=== PATIENT | female | born 1995 | race African-American/Black ===

== ENCOUNTER 2017-01-31 00:34 | Emergency (ER) | payer OTHER ==
[~2017-01-31] VITALS: Ht 170.2 cm; Wt 89.4 kg
[~2017-01-31 00:34] MED LIST: FLAGYL500 MG PO; FLONASE16 G1 BOTH NARES; KEFLEX500 MG PO; NAPROSYN500 MG PO; ZYRTEC10 M2 PO
[2017-01-31 01:58] LABS: HEMATOCRIT 33.7 % (36.0-46.0); MCH 26.9 PG (29.0-34.0); MCHC 32.9 G/DL (30.0-36.0); MCV 81.6 FL (83-99); RBC DIS.WIDTH-CV 14.3 % (11.8-14.6); RBC DIS.WIDTH-SD 42.2 % (39-53); RED BLOOD COUNT 4.13 M/uL (3.80-5.20); WHITE BLOOD COUNT 13.5 K/uL (4.1-10.2)
[2017-01-31 02:00] LABS: MEAN PLAT.VOLUME 11.9 uM^3 (9.5-12.4); PLATELET COUNT 220 K/uL (156-360)
[2017-01-31 02:09] LABS: CHLORIDE 106 mEq/L (99-109); POTASSIUM 3.8 mEq/L (3.7-5.4); SODIUM 135 mEq/L (136-147)
[2017-01-31 02:11] LABS: GLUCOSE 87 mg/dL (70-99)
[2017-01-31 02:12] LABS: ANION GAP 8 MEQ/L (2-14)
[2017-01-31 02:13] LABS: TOTAL BILIRUBIN 0.2 mg/dL (0.0-1.0)
[2017-01-31 02:14] LABS: ALKALINE PHOSPHATASE 67 IU/L (3-129)
[2017-01-31 02:15] LABS: GFR ESTIMATE (CALCULATED) > 59 mL/min/
[2017-01-31 02:16] LABS: UREA NITROGEN (BUN) 8 mg/dL (9-23)
[2017-01-31 02:18] LABS: LIPASE 18 U/L (1.0-51.0)
[2017-01-31 02:42] LABS: QUANTITATIVE HCG 27879.2 MIU/ML
[2017-01-31 02:45] LABS: ADD MIUA? YES; BILIRUBIN NEGATIVE; BLOOD NEGATIVE; COLOR YELLOW ((YELLOW)); GLUCOSE (STRIP) NEGATIVE; KETONES NEGATIVE; LEUKOCYTES TRACE; NITRITE NEGATIVE; PROTEIN (STRIP) 30; SPECIFIC GRAVITY 1.019 (1.000-1.030); UROBILINOGEN 0.2 MG/DL (0.2-1.0)
[2017-01-31 03:05] LABS: BACTERIA 3+ /HPF; CASTS NONE SEEN /LPF; EPITHELIAL CELLS 1+ /HPF; MUCUS RARE /LPF; RED BLOOD CELLS NONE SEEN /HPF (0-5); UCUL ADDED? YES
[2017-01-31 03:06] LABS: CRYSTALS NONE SEEN
[2017-01-31] MEDS ORDERED: MACROBID100 MG PO (03:17)
[2017-01-31 03:24] VITALS: BP 124/78
== END 2017-01-31 03:24 | disposition home or self-care (01) ==
LOC: EME 00:34
PROVIDERS: Emergency Medicine
DX: O23.42 Unspecified infection of urinary tract in pregnancy, second trimester (principal); Z3A.21 21 weeks gestation of pregnancy
CPT/HCPCS: 76805; 80053; 81003; 83690; 84702; 85027; 87086; 99281; 99283

== ENCOUNTER 2017-06-17 22:42 | Inpatient (IN) | payer OTHER ==
[~2017-06-17] VITALS: Ht 167.6 cm; Wt 99.0 kg
[~2017-06-17 22:42] MED LIST changes: +MACROBID100 MG PO
[2017-06-17 23:08] VITALS: BP 136/89
[2017-06-17] MEDS ORDERED: PRENATAL VITAM1 EA11 PO (23:56)
[2017-06-18] VITALS (28 sets, daily range): BP systolic 105–138; BP diastolic 56–88
[2017-06-18 00:27] LABS: EOSINOPHIL (%) 0.6 % (0-5); EOSINOPHIL COUNT 0.1 K/uL (0-0.3); HEMATOCRIT 32.2 % (36.0-46.0); IMMATURE GRANULOCYTE (%) 1.8 % (0.0-0.7); IMMATURE GRANULOCYTE COUNT 0.1 K/uL; INSTRUMENT ABS NEUTROPHIL CT 4.3 K/uL; LYMPHOCYTE COUNT 2.3 K/uL (1.0-2.8); MCH 24.4 PG (29.0-34.0); MCHC 31.1 G/DL (30.0-36.0); MCV 78.5 FL (83-99); MEAN PLAT.VOLUME 12.5 uM^3 (9.5-12.4); MONOCYTE (%) 13.1 % (3-12); NEUTROPHIL (%) 55.1 % (45-76); NEUTROPHIL COUNT 4.3 K/uL (1.8-6.4); PLATELET COUNT 199 K/uL (156-360); RBC DIS.WIDTH-CV 14.9 % (11.8-14.6); RBC DIS.WIDTH-SD 42.5 % (39-53); WHITE BLOOD COUNT 7.8 K/uL (4.1-10.2)
[2017-06-19 07:00] LABS: EOSINOPHIL (%) 0.5 % (0-5); EOSINOPHIL COUNT 0.1 K/uL (0-0.3); IMMATURE GRANULOCYTE (%) 1.7 % (0.0-0.7); IMMATURE GRANULOCYTE COUNT 0.3 K/uL; LYMPHOCYTE COUNT 3.3 K/uL (1.0-2.8); MCH 24.5 PG (29.0-34.0); MCHC 30.8 G/DL (30.0-36.0); MCV 79.6 FL (83-99); MEAN PLAT.VOLUME 12.8 uM^3 (9.5-12.4); MONOCYTE COUNT 1.9 K/uL (0-0.8); NEUTROPHIL (%) 64.5 % (45-76); PLATELET COUNT 156 K/uL (156-360); RBC DIS.WIDTH-CV 15.1 % (11.8-14.6); RBC DIS.WIDTH-SD 43.6 % (39-53); WHITE BLOOD COUNT 15.4 K/uL (4.1-10.2)
[2017-06-19 07:01] LABS: RED BLOOD COUNT 3.14 M/uL (3.80-5.20)
[2017-06-19 07:29] VITALS: BP 143/73
[2017-06-19 15:27] VITALS: BP 120/77
[2017-06-19 23:01] VITALS: BP 125/75
[2017-06-20 07:23] VITALS: BP 126/68
[2017-06-20] MEDS ORDERED: IBUPROFEN800 MG PO (11:10)
[2017-06-20] MEDS ORDERED: FERROUS GLUCON324 MG PO (11:11)
== END 2017-06-20 13:00 | disposition home or self-care (01) | DRG 775 ==
LOC: LDRP-OP → 2WEST 22:43 → LDRP-OP 07-16 10:18
PROVIDERS: Advanced Practice Midwife
DX: O48.0 Post-term pregnancy (principal); O99.214 Obesity complicating childbirth; O70.0 First degree perineal laceration during delivery; O99.824 Streptococcus B carrier state complicating childbirth; Z37.0 Single live birth; Z3A.40 40 weeks gestation of pregnancy; Z68.30 Body mass index [BMI] 30.0-30.9, adult; Z87.891 Personal history of nicotine dependence
CPT/HCPCS: 85025; C1755; G0378; J1200; J2540; J3010; J7120

== ENCOUNTER 2017-08-07 10:39 | Inpatient (IN) | payer OTHER ==
[~2017-08-07] VITALS: Ht 170.2 cm; Wt 84.8 kg
[~2017-08-07 10:39] MED LIST changes: +FERROUS GLUCON324 MG PO; +IBUPROFEN800 MG PO; +PRENATAL VITAM1 EA11 PO
[2017-08-07 11:19] LABS: HEMATOCRIT 33.1 % (36.0-46.0); HEMOGLOBIN 10.2 G/DL (11.9-15.5); MCH 23.5 PG (29.0-34.0); MCHC 30.8 G/DL (30.0-36.0); MCV 76.3 FL (83-99); PLATELET COUNT 271 K/uL (156-360); RBC DIS.WIDTH-CV 16.4 % (11.8-14.6); RBC DIS.WIDTH-SD 45.9 % (39-53); RED BLOOD COUNT 4.34 M/uL (3.80-5.20); WHITE BLOOD COUNT 16.2 K/uL (4.1-10.2)
[2017-08-07 11:29] LABS: ALBUMIN 3.8 g/dL (3.2-4.8)
[2017-08-07 11:30] LABS: CHLORIDE 105 mEq/L (99-109); POTASSIUM 3.5 mEq/L (3.7-5.4); SODIUM 137 mEq/L (136-147)
[2017-08-07 11:32] LABS: GLUCOSE 105 mg/dL (70-99); TOTAL PROTEIN 7.9 g/dL (6.4-8.3)
[2017-08-07 11:34] LABS: TOTAL BILIRUBIN 0.4 mg/dL (0.0-1.0)
[2017-08-07 11:35] LABS: ALKALINE PHOSPHATASE 98 IU/L (3-129)
[2017-08-07 11:36] LABS: CREATININE 0.8 mg/dL (0.6-1.3); GFR ESTIMATE (CALCULATED) > 59 mL/min/
[2017-08-07 11:37] LABS: AST (GOT) 16 IU/L (2-34); UREA NITROGEN (BUN) 8 mg/dL (9-23)
[2017-08-07 11:39] LABS: ALT (GPT) 11 IU/L (3-49)
[2017-08-07 11:45] LABS: QUANTITATIVE HCG < 4.0 MIU/ML
[2017-08-07 13:33] LABS: APPEARANCE CLOUDY ((CLEAR)); BILIRUBIN NEGATIVE; BLOOD SMALL; COLOR YELLOW ((YELLOW)); GLUCOSE (STRIP) NEGATIVE; KETONES 20; LEUKOCYTES LARGE; NITRITE POSITIVE; PROTEIN (STRIP) 30; SPECIFIC GRAVITY 1.014 (1.000-1.030); UROBILINOGEN 0.2 MG/DL (0.2-1.0)
[2017-08-07 13:40] LABS: BACTERIA 2+ /HPF; EPITHELIAL CELLS RARE /HPF; MUCUS 1+ /LPF; UCUL ADDED? YES; WHITE BLOOD CELLS TNTC /HPF (0-5)
[2017-08-07] MEDS ORDERED: PROCTOSOL-HC28.35 GM PR (19:24)
[2017-08-07] MEDS ORDERED: FERGON324 MG PO (19:24)
[2017-08-07] MEDS ORDERED: SPRINTEC1 EACH PO (19:24)
[2017-08-08 07:13] VITALS: BP 103/53
[2017-08-08 07:16] LABS: BASOPHIL (%) 0.1 % (0-1); EOSINOPHIL (%) 0 % (0-5); HEMATOCRIT 28.8 % (36.0-46.0); HEMOGLOBIN 8.8 G/DL (11.9-15.5); IMMATURE GRANULOCYTE (%) 0.7 % (0.0-0.7); LYMPHOCYTE (%) 15.6 % (15-42); LYMPHOCYTE COUNT 2.1 K/uL (1.0-2.8); MCH 23.2 PG (29.0-34.0); MCHC 30.6 G/DL (30.0-36.0); MONOCYTE COUNT 1.8 K/uL (0-0.8); NEUTROPHIL (%) 70.6 % (45-76); NEUTROPHIL COUNT 9.5 K/uL (1.8-6.4); PLATELET COUNT 250 K/uL (156-360); RBC DIS.WIDTH-CV 16.6 % (11.8-14.6); RBC DIS.WIDTH-SD 45.5 % (39-53); RED BLOOD COUNT 3.79 M/uL (3.80-5.20); WHITE BLOOD COUNT 13.4 K/uL (4.1-10.2)
[2017-08-08 07:59] LABS: CHLORIDE 103 MEQ/L (99-109); CREATININE 0.9 MG/DL (0.6-1.3); GFR ESTIMATE (CALCULATED) > 59 mL/min/; GLUCOSE 85 mg/dL (70-99); POTASSIUM 3.4 MEQ/L (3.7-5.4); SODIUM 134 MEQ/L (136-147); UREA NITROGEN (BUN) 6 mg/dL (9-23)
[2017-08-08 10:03] VITALS: BP 107/56
[2017-08-08 14:52] VITALS: BP 112/60
[2017-08-08 15:26] VITALS: BP 114/57
[2017-08-08 19:00] VITALS: BP 123/66
[2017-08-09 00:26] VITALS: BP 109/65
[2017-08-09 06:03] LABS: BASOPHIL (%) 0.1 % (0-1); EOSINOPHIL (%) 0 % (0-5); HEMATOCRIT 28.5 % (36.0-46.0); HEMOGLOBIN 8.7 G/DL (11.9-15.5); IMMATURE GRANULOCYTE (%) 0.6 % (0.0-0.7); LYMPHOCYTE (%) 7.8 % (15-42); LYMPHOCYTE COUNT 1.1 K/uL (1.0-2.8); MCH 23.1 PG (29.0-34.0); MCHC 30.5 G/DL (30.0-36.0); MCV 75.8 FL (83-99); MONOCYTE (%) 9.2 % (3-12); MONOCYTE COUNT 1.3 K/uL (0-0.8); NEUTROPHIL (%) 82.3 % (45-76); NEUTROPHIL COUNT 11.7 K/uL (1.8-6.4); PLATELET COUNT 237 K/uL (156-360); RBC DIS.WIDTH-CV 16.1 % (11.8-14.6); RBC DIS.WIDTH-SD 44.9 % (39-53); RED BLOOD COUNT 3.76 M/uL (3.80-5.20); WHITE BLOOD COUNT 14.2 K/uL (4.1-10.2)
[2017-08-09 06:22] LABS: ALBUMIN 3.2 G/DL (3.2-4.8); ALKALINE PHOSPHATASE 73 IU/L (3-129); ALT (GPT) 8 IU/L (3-49); AST (GOT) 16 IU/L (2-34); CHLORIDE 111 MEQ/L (99-109); CREATININE 0.6 MG/DL (0.6-1.3); GFR ESTIMATE (CALCULATED) > 59 mL/min/; SODIUM 139 MEQ/L (136-147); TOTAL BILIRUBIN 0.2 MG/DL (0.0-1.0); TOTAL PROTEIN 6.2 G/DL (6.4-8.3); UREA NITROGEN (BUN) 9 mg/dL (9-23)
[2017-08-09 06:23] LABS: GLUCOSE 117 mg/dL (70-99); POTASSIUM 4.3 MEQ/L (3.7-5.4)
[2017-08-09 07:59] VITALS: BP 113/70
[2017-08-09 12:20] VITALS: BP 131/68
[2017-08-09 16:00] VITALS: BP 125/68
[2017-08-09 19:10] VITALS: BP 120/72
[2017-08-09 23:50] VITALS: BP 121/77
[2017-08-10 05:31] LABS: BASOPHIL (%) 0.3 % (0-1); EOSINOPHIL (%) 0 % (0-5); HEMOGLOBIN 7.9 G/DL (11.9-15.5); IMMATURE GRANULOCYTE (%) 0.6 % (0.0-0.7); LYMPHOCYTE (%) 25.7 % (15-42); MCH 23.3 PG (29.0-34.0); MCHC 30.4 G/DL (30.0-36.0); MCV 76.7 FL (83-99); MONOCYTE (%) 10.5 % (3-12); MONOCYTE COUNT 0.8 K/uL (0-0.8); NEUTROPHIL (%) 62.9 % (45-76); PLATELET COUNT 231 K/uL (156-360); RBC DIS.WIDTH-CV 16.3 % (11.8-14.6); RBC DIS.WIDTH-SD 45.6 % (39-53); RED BLOOD COUNT 3.39 M/uL (3.80-5.20); WHITE BLOOD COUNT 7.9 K/uL (4.1-10.2)
[2017-08-10 05:56] LABS: CHLORIDE 111 MEQ/L (99-109); CREATININE 0.8 MG/DL (0.6-1.3); GFR ESTIMATE (CALCULATED) > 59 mL/min/; GLUCOSE 90 mg/dL (70-99); POTASSIUM 3.7 MEQ/L (3.7-5.4); SODIUM 138 MEQ/L (136-147); UREA NITROGEN (BUN) 6 mg/dL (9-23)
[2017-08-10 08:28] VITALS: BP 120/70
[2017-08-10 11:07] VITALS: BP 145/98
[2017-08-10 15:14] VITALS: BP 111/70
[2017-08-10 19:30] VITALS: BP 129/77
[2017-08-10 23:45] VITALS: BP 120/78
[2017-08-11 09:29] VITALS: BP 127/71
[2017-08-11 10:11] LABS: HEMATOCRIT 27.7 % (36.0-46.0); HEMOGLOBIN 8.6 G/DL (11.9-15.5); MCH 23.6 PG (29.0-34.0); MCV 75.9 FL (83-99); PLATELET COUNT 276 K/uL (156-360); RBC DIS.WIDTH-CV 16.5 % (11.8-14.6); RBC DIS.WIDTH-SD 45.5 % (39-53); RED BLOOD COUNT 3.65 M/uL (3.80-5.20); WHITE BLOOD COUNT 6.1 K/uL (4.1-10.2)
[2017-08-11 10:36] LABS: CHLORIDE 106 MEQ/L (99-109); CREATININE 0.7 MG/DL (0.6-1.3); GFR ESTIMATE (CALCULATED) > 59 mL/min/; GLUCOSE 117 mg/dL (70-99); POTASSIUM 3.5 MEQ/L (3.7-5.4); SODIUM 138 MEQ/L (136-147); UREA NITROGEN (BUN) 5 mg/dL (9-23)
[2017-08-11 12:47] VITALS: BP 154/76
[2017-08-11 15:25] VITALS: BP 126/81
[2017-08-11 19:00] VITALS: BP 128/84
[2017-08-12 00:51] VITALS: BP 128/84
[2017-08-12 09:00] VITALS: BP 120/69
[2017-08-12 11:13] VITALS: BP 138/75
[2017-08-12] MEDS ORDERED: TAMSULOSIN HCL0.4 MG PO (13:41)
[2017-08-12] MEDS ORDERED: MYCOSTATIN 100,60 ML PO (13:41)
[2017-08-12] MEDS ORDERED: LEVAQUIN750 MG PO (13:41)
== END 2017-08-12 15:11 | disposition home or self-care (01) | DRG 872 ==
LOC: EME 10:39 → EDOF 22:17 → 5WEST 22:17 → ENRESERV 22:34 → 5WEST 08-08 07:00 → ENPENDDIS 08-12 → 5WEST 08-12 15:11
PROVIDERS: Hospitalist; Physician Assistant
DX: A41.9 Sepsis, unspecified organism (principal); N13.6 Pyonephrosis; B96.20 Unspecified Escherichia coli [E. coli] as the cause of diseases classified elsewhere; Z87.891 Personal history of nicotine dependence
CPT/HCPCS: 74018; 74176; 76000; 80048; 80053; 81003; 84702; 85025; 85027; 87040; 87077; 87086; 87186; 87801; 99281; 99285; C1769; C2625; G0378; J0330; J0696; J1170; J1885; J2250; J2270; J2405; J3010; J7030

== ENCOUNTER 2017-11-05 12:37 | Emergency (ER) | payer OTHER ==
[~2017-11-05] VITALS: Ht 170.2 cm; Wt 82.6 kg
[~2017-11-05 12:37] MED LIST changes: +FERGON324 MG PO; +LEVAQUIN750 MG PO; +MYCOSTATIN 100,60 ML PO; +PROCTOSOL-HC28.35 GM PR; +SPRINTEC1 EACH PO; +TAMSULOSIN HCL0.4 MG PO
[2017-11-05 15:25] LABS: SOURCE SWAB
[2017-11-05 15:31] LABS: APPEARANCE CLOUDY ((CLEAR)); BILIRUBIN NEGATIVE; BLOOD NEGATIVE; COLOR YELLOW ((YELLOW)); GLUCOSE (STRIP) NEGATIVE; KETONES NEGATIVE; LEUKOCYTES NEGATIVE; NITRITE NEGATIVE; PROTEIN (STRIP) NEGATIVE; SPECIFIC GRAVITY 1.016 (1.000-1.030); UROBILINOGEN 0.2 MG/DL (0.2-1.0)
[2017-11-05 15:37] LABS: BACTERIA RARE /HPF; EPITHELIAL CELLS RARE /HPF; MUCUS TRACE /LPF; RED BLOOD CELLS 0-5 /HPF (0-5); UCUL ADDED? NO; WHITE BLOOD CELLS 0-5 /HPF (0-5)
[2017-11-05] MEDS ORDERED: FLAGYL500 MG PO (16:11)
[2017-11-05] MEDS ORDERED: MOTRIN600 MG PO (16:11)
[2017-11-05] MEDS ORDERED: FLEXERIL10 MG PO (16:16)
[2017-11-05 16:29] VITALS: BP 119/87
== END 2017-11-05 16:30 | disposition home or self-care (01) ==
LOC: EME 12:37
PROVIDERS: Physician Assistant
DX: N76.0 Acute vaginitis (principal); B96.89 Other specified bacterial agents as the cause of diseases classified elsewhere; G89.29 Other chronic pain; M54.5 Low back pain; M54.2 Cervicalgia; Z87.442 Personal history of urinary calculi
CPT/HCPCS: 81003; 81025; 87210; 87491; 87591; 99281; 99283; J0696

== ENCOUNTER 2018-02-10 23:24 | Emergency (ER) | payer OTHER ==
[~2018-02-10] VITALS: Ht 167.6 cm; Wt 86.1 kg
[~2018-02-10 23:24] MED LIST changes: +FLEXERIL10 MG PO; +MOTRIN600 MG PO
[2018-02-11 00:09] LABS: APPEARANCE CLOUDY ((CLEAR)); BILIRUBIN NEGATIVE; BLOOD NEGATIVE; COLOR YELLOW ((YELLOW)); GLUCOSE (STRIP) NEGATIVE; KETONES NEGATIVE; LEUKOCYTES SMALL; NITRITE NEGATIVE; PROTEIN (STRIP) NEGATIVE; SPECIFIC GRAVITY 1.023 (1.000-1.030)
[2018-02-11 00:24] LABS: BACTERIA 3+ /HPF; EPITHELIAL CELLS 2+ /HPF; MUCUS TRACE /LPF; RED BLOOD CELLS 0-5 /HPF (0-5); UCUL ADDED? YES
[2018-02-11 01:17] LABS: CHLORIDE 105 mEq/L (99-109); HEMATOCRIT 33.4 % (36.0-46.0); HEMOGLOBIN 10.3 G/DL (11.9-15.5); MCH 24.3 PG (29.0-34.0); MCHC 30.8 G/DL (30.0-36.0); MCV 78.8 FL (83-99); PLATELET COUNT 274 K/uL (156-360); POTASSIUM 4.2 mEq/L (3.7-5.4); RBC DIS.WIDTH-CV 16.6 % (11.8-14.6); RBC DIS.WIDTH-SD 47.7 % (39-53); RED BLOOD COUNT 4.24 M/uL (3.80-5.20); SODIUM 137 mEq/L (136-147); WHITE BLOOD COUNT 9.7 K/uL (4.1-10.2)
[2018-02-11 01:19] LABS: GLUCOSE 94 mg/dL (70-99); TOTAL PROTEIN 7.2 g/dL (6.4-8.3)
[2018-02-11 01:21] LABS: TOTAL BILIRUBIN 0.4 mg/dL (0.0-1.0)
[2018-02-11 01:22] LABS: ALKALINE PHOSPHATASE 156 IU/L (3-129)
[2018-02-11 01:23] LABS: CREATININE 0.8 mg/dL (0.6-1.3); GFR ESTIMATE (CALCULATED) > 59 mL/min/
[2018-02-11 01:24] LABS: AST (GOT) 25 IU/L (2-34); UREA NITROGEN (BUN) 12 mg/dL (9-23)
[2018-02-11 01:26] LABS: ALT (GPT) 17 IU/L (3-49); LIPASE 16 U/L (1.0-51.0)
[2018-02-11 01:32] LABS: QUANTITATIVE HCG < 4.0 MIU/ML
[2018-02-11] MEDS ORDERED: KEFLEX500 MG PO (03:57)
[2018-02-11] MEDS ORDERED: MOTRIN800 MG PO (03:57)
[2018-02-11 04:07] VITALS: BP 142/99
== END 2018-02-11 04:08 | disposition home or self-care (01) ==
LOC: EME 23:24
DX: N39.0 Urinary tract infection, site not specified (principal); R10.32 Left lower quadrant pain; Z87.442 Personal history of urinary calculi; Z97.5 Presence of (intrauterine) contraceptive device
CPT/HCPCS: 74176; 80053; 81003; 83690; 84702; 85027; 87077; 87086; 87186; 99281; 99284